=== PATIENT | male | born 1945 | race Hispanic/Latino ===

== ENCOUNTER → 2017-10-15 | Outpatient (CLI) | payer MEDICARE ==
[~2017-10-15] MED LIST: ADV250 IH; BISA5TAB12 PO; BRIM5DRO4 OP; CARV12.511 PO; CYCL5.5D OP; FINA5TAB41 PO; FURO-151 PO; INSLAN SQ; INSU100C14 SQ; LORA1TAB3 PO; LOSA25TA21 PO; LUBI24CA2 PO; SIMV40TA59 PO
== END | disposition home or self-care (01) ==
LOC: RAH 10:15
PROVIDERS: ATTEND Urology
DX: N28.1 Cyst of kidney, acquired (principal)
CPT/HCPCS: 76770

== ENCOUNTER 2018-01-23 13:21 | Observation (INO) | payer MEDICARE ==
[~2018-01-23] VITALS: Ht 170.2 cm; Wt 129.7 kg
[~2018-01-23 13:21] MED LIST changes: -BRIM5DRO4 OP
[2018-01-23 14:44] LABS: CREATININE 1.5 mg/dL (0.5-1.5); POTASSIUM 3.4 mmol/L (3.5-5.1)
[2018-01-23 14:48] LABS: ALBUMIN 3.1 g/dL (3.5-5.0); BILIRUBIN,TOTAL 0.3 mg/dL (0.2-1.0); TOTAL PROTEIN, SERUM 7.3 g/dL (6.0-8.3)
[2018-01-23] MEDS ORDERED: ALBUTEROL SULFATE 0.083% 2.5 MG/3 ML INH IH ONE (15:21)
[2018-01-23] MEDS ORDERED: SODIUM CHLORIDE 0.9% 1000ML 1,000 ML IV SCH (16:45)
[2018-01-23] MEDS: ACETYLCYSTEINE 600 MG CAPSULE PO SCH (21:00)
[2018-01-23] MEDS: INSULIN R PO SSI SQ SCH (21:00)
[2018-01-23 21:50] VITALS: BP 150/86
[2018-01-23] MEDS ORDERED: IPRATROPIUM/ALBUTEROL SULFATE 3 ML SOLUTION IH ONE (22:51)
[2018-01-24] MEDS ORDERED: DEXTROSE 50%-WATER 50 ML DISP.SYRIN IV PRN (00:30)
[2018-01-24] MEDS ORDERED: GLUCAGON 1MG KIT 1 MG ML IM PRN (00:30)
[2018-01-24] MEDS: IPRATROPIUM/ALBUTEROL SULFATE 3 ML SOLUTION IH PRN ×4 (02:41→18:16)
[2018-01-24 04:00] VITALS: BP 121/71
[2018-01-24 04:35] LABS: BILIRUBIN,TOTAL 0.4 mg/dL (0.2-1.0); CREATININE 1.5 mg/dL (0.5-1.5); POTASSIUM 3.6 mmol/L (3.5-5.1); TOTAL PROTEIN, SERUM 7.2 g/dL (6.0-8.3)
[2018-01-24] MEDS: INSULIN R PO SSI SQ SCH ×4 (07:30→22:34)
[2018-01-24 08:08] VITALS: BP 126/57
[2018-01-24] MEDS: ACETYLCYSTEINE 600 MG CAPSULE PO SCH ×2 (09:14→22:25)
[2018-01-24] MEDS ORDERED: IOPAMIDOL-370 75 ML VIAL IV ONE (10:36)
[2018-01-24 12:18] VITALS: BP 144/81
[2018-01-24 16:21] VITALS: BP 127/56
[2018-01-24] MEDS ORDERED: BRIM5DRO4 OP (16:52)
[2018-01-24] MEDS ORDERED: LUBI24CA2 PO (16:52)
[2018-01-24] MEDS ORDERED: LORAZEPAM 1 MG TABLET PO PRN (17:00)
[2018-01-24] MEDS: BUDESONIDE 0.5 MG/2 ML INH IH SCH (18:16)
[2018-01-24 19:05] VITALS: BP 137/77
[2018-01-24] MEDS: CARVEDILOL 12.5 MG TABLET PO SCH (22:23)
[2018-01-24] MEDS: BRIMONIDINE TARTRATE 0.2% 5 ML BOTTLE OP SCH (22:24)
[2018-01-24] MEDS: FUROSEMIDE 40 MG TABLET PO SCH (22:24)
[2018-01-24] MEDS: LUBIPROSTONE 24 MCG CAP PO SCH (22:26)
[2018-01-25 00:05] VITALS: BP 119/62
[2018-01-25] MEDS: IPRATROPIUM/ALBUTEROL SULFATE 3 ML SOLUTION IH PRN ×6 (02:59→22:09)
[2018-01-25 04:05] VITALS: BP 114/48
[2018-01-25 04:28] LABS: HEMATOCRIT 45.6 % (42-54); MEAN CORPUSCULAR HEMOGLOBIN 31.1 pg (27.0-33.0); MEAN CORPUSCULAR HGB CONC 35.3 g/dL (32.0-36.0); MEAN CORPUSCULAR VOLUME 88.2 fL (79-99); PLATELET COUNT (AUTO) 148 K/uL (130-400); RED BLOOD CELL COUNT(AUTO) 5.17 MIL/uL (4.50-6.20); RED CELL DISTRIBUTION WIDTH 14.4 % (11.0-15.5); WHITE BLOOD COUNT (AUTO) 8.5 K/uL (4.8-10.8)
[2018-01-25 04:35] LABS: CREATININE 1.6 mg/dL (0.5-1.5); POTASSIUM 4.2 mmol/L (3.5-5.1)
[2018-01-25] MEDS: BUDESONIDE 0.5 MG/2 ML INH IH SCH ×2 (06:22→18:17)
[2018-01-25] MEDS: INSULIN R PO SSI SQ SCH ×4 (06:57→22:27)
[2018-01-25 07:58] VITALS: BP 126/76
[2018-01-25] MEDS: CARVEDILOL 12.5 MG TABLET PO SCH ×2 (08:49→22:20)
[2018-01-25] MEDS: FUROSEMIDE 40 MG TABLET PO SCH ×3 (08:49→22:20)
[2018-01-25] MEDS: LUBIPROSTONE 24 MCG CAP PO SCH ×2 (08:49→22:20)
[2018-01-25] MEDS: LOSARTAN 50 MG TABLET PO SCH (08:51)
[2018-01-25] MEDS: BRIMONIDINE TARTRATE 0.2% 5 ML BOTTLE OP SCH ×2 (08:51→22:21)
[2018-01-25] MEDS: ACETYLCYSTEINE 600 MG CAPSULE PO SCH ×2 (08:51→22:20)
[2018-01-25 16:06] VITALS: BP 134/88
[2018-01-25 19:05] VITALS: BP 103/66
[2018-01-26 00:05] VITALS: BP 110/72
[2018-01-26] MEDS: IPRATROPIUM/ALBUTEROL SULFATE 3 ML SOLUTION IH PRN ×3 (02:43→11:17)
[2018-01-26 04:05] VITALS: BP 120/56
[2018-01-26 06:13] LABS: BASOPHILS % (AUTO) 1.2 % (0.0-5.0); EOSINOPHILS % (AUTO) 10.4 % (0.0-8.0); LYMPHOCYTES % (AUTO) 13.4 % (21.0-51.0); MEAN CORPUSCULAR HGB CONC 34.1 g/dL (32.0-36.0); MEAN CORPUSCULAR VOLUME 88.1 fL (79-99); MONOCYTES % (AUTO) 6.4 % (3.0-13.0); NEUTROPHILS % (AUTO) 68.6 % (40.0-77.0); PLATELET COUNT (AUTO) 128 K/uL (130-400); RED CELL DISTRIBUTION WIDTH 14.4 % (11.0-15.5); WHITE BLOOD COUNT (AUTO) 7.4 K/uL (4.8-10.8)
[2018-01-26] MEDS: BUDESONIDE 0.5 MG/2 ML INH IH SCH (06:20)
[2018-01-26 06:22] LABS: CREATININE 1.6 mg/dL (0.5-1.5); POTASSIUM 3.9 mmol/L (3.5-5.1)
[2018-01-26] MEDS: INSULIN R PO SSI SQ SCH ×2 (07:56→12:38)
[2018-01-26 08:17] VITALS: BP 128/70
[2018-01-26] MEDS: BRIMONIDINE TARTRATE 0.2% 5 ML BOTTLE OP SCH (09:00)
[2018-01-26] MEDS: ACETYLCYSTEINE 600 MG CAPSULE PO SCH (09:37)
[2018-01-26] MEDS: LUBIPROSTONE 24 MCG CAP PO SCH (09:37)
[2018-01-26] MEDS: LOSARTAN 50 MG TABLET PO SCH (09:38)
[2018-01-26] MEDS: FUROSEMIDE 40 MG TABLET PO SCH ×2 (09:38→15:19)
[2018-01-26] MEDS: CARVEDILOL 12.5 MG TABLET PO SCH (09:39)
[2018-01-26 12:08] VITALS: BP 124/57
== END 2018-01-26 16:01 | disposition home or self-care (01) ==
LOC: EDH 13:21 → EDHIP 13:22 → 3CH 20:08
PROVIDERS: ADMIT Internal Medicine; ATTEND Internal Medicine
DX: N28.1 Cyst of kidney, acquired (principal); I25.5 Ischemic cardiomyopathy; E11.22 Type 2 diabetes mellitus with diabetic chronic kidney disease; N18.9 Chronic kidney disease, unspecified; I50.9 Heart failure, unspecified; N40.0 Benign prostatic hyperplasia without lower urinary tract symptoms; Z95.810 Presence of automatic (implantable) cardiac defibrillator
CPT/HCPCS: 36415 ×4; 74178; 80048 ×2; 80053 ×2; 82948 ×13; 85025; 85027; 94640 ×19; 94664; 96372 ×3; 99285; G0378 ×75; J1815 ×5; Q9967